=== PATIENT | male | born 1980 | race Caucasian/White ===

== ENCOUNTER 2018-05-30 08:06 | Emergency (ER) | payer MEDICAID, OTHER ==
[~2018-05-30] VITALS: Ht 185.4 cm; Wt 86.4 kg
[2018-05-30 08:09] VITALS: BP 147/91
[2018-05-30] MEDS ORDERED: diazepam 5mg tablet PO ONE (08:25)
[2018-05-30] MEDS ORDERED: oxyCODONE/APAP 10/325mg tablet PO ONE (08:25)
[2018-05-30] MEDS ORDERED: ketorolac trometh inj. 60 MG/2 ML VIAL IM ONE (08:25)
[2018-05-30] MEDS ORDERED: DIAZ-351 PO (09:35)
== END 2018-05-30 09:50 | disposition home or self-care (01) ==
LOC: ER 08:07
DX: G89.29 Other chronic pain (principal); M54.5 Low back pain; I10 Essential (primary) hypertension; F17.210 Nicotine dependence, cigarettes, uncomplicated; F12.90 Cannabis use, unspecified, uncomplicated; F15.90 Other stimulant use, unspecified, uncomplicated; F11.90 Opioid use, unspecified, uncomplicated; Z98.890 Other specified postprocedural states; Z56.0 Unemployment, unspecified; Z88.8 Allergy status to other drugs, medicaments and biological substances; Z79.899 Other long term (current) drug therapy
CPT/HCPCS: 72100; 96372; 99283; J1885